=== PATIENT | male | born 1980 | race Caucasian/White ===

== ENCOUNTER 2021-03-29 23:03 | Emergency (ER) | payer MEDICAID ==
[~2021-03-29] VITALS: Ht 177.8 cm; Wt 108.9 kg
[2021-03-29 23:05] VITALS: BP 139/69
--- NOTE | 2021-03-29 23:05 | NUR ---
PATIENT LUMA LARSEN. TAKEN TO CHAIR B
--- NOTE | 2021-03-30 00:44 | NUR ---
PATIENT BIB [facility]. PATIENT EXAMINED BY DR. PRUETT. PATIENT MEDICALLY CLEARED AND RELEASED IN CUSTODY IN STABLE CONDITION. ORIGINAL PRE-BOOK FORM GIVEN TO [employer], #0036.
== END 2021-03-30 00:44 ==
LOC: MED 23:03
DX: R03.0 Elevated blood-pressure reading, without diagnosis of hypertension (principal); Z02.89 Encounter for other administrative examinations
CPT/HCPCS: 99283